=== PATIENT | male | born 1955 | race Caucasian/White ===

== ENCOUNTER 2018-10-28 13:59 | Emergency (ER) | payer MEDICARE, OTHER ==
[2018-10-28] MEDS ORDERED: Lidocaine 1% 30 ML SDV INJECT ONE (14:16)
--- NOTE | 2018-10-28 14:47 | CR ---
[id number] RAD/RAD Fingers Right EXAM: RAD Fingers Right CLINICAL DATA: TRAUMA COMPARISON: NO PREVIOUS SIMILAR EXAM IS AVAILABLE. FINDINGS: Soft tissue injury is seen with tiny radiopaque foreign bodies. There is no underlying bony abnormality.. IMPRESSION: NO BONY ABNORMALITY. Mat Solano MD 10/28/18 1995 Thank you for allowing us to participate in the care of your patient.
--- NOTE | 2018-10-28 14:52 | EDM.PDOC ---
ED HPI GENERAL MEDICAL PROBLEM - General Chief Complaint: Laceration Stated Complaint: cut by saw Time Seen by Provider: 10/28/18 14:04 Source of Information: Reports: Patient History Limitations: Reports: No Limitations - History of Present Illness INITIAL COMMENTS - FREE TEXT/NARRATIVE: Patient cutting on table saw when he cut his right thumb. He has no other complaints. Is able to move thumb in all directions. Up to date on Tetanus vaccination. Onset: Today, Sudden Right Finger-Thumb Pain Score (Numeric/FACES): 4 - Related Data Allergies Allergy/AdvReac Type Severity Reaction Status Date / Time No Known Allergies Allergy Verified 10/28/18 14:20 Social & Family History - Tobacco Use Smoking Status *Q: Never Smoker ED ROS GENERAL - Review of Systems Review Of Systems: See Below Constitutional: Reports: No Symptoms HEENT: Reports: No Symptoms Respiratory: Reports: No Symptoms Cardiovascular: Reports: No Symptoms Endocrine: Reports: No Symptoms GI/Abdominal: Reports: No Symptoms : Reports: No Symptoms Musculoskeletal: Reports: No Symptoms Skin: Reports: Wound (laceration to right distal thumb from saw cut) Neurological: Reports: No Symptoms Psychiatric: Reports: No Symptoms Hematologic/Lymphatic: Reports: No Symptoms Immunologic: Reports: No Symptoms ED EXAM, SKIN/RASH Exam: See Below Exam Limited By: No Limitations Skin: Wound/Incision (3.5 cm linear laceration to distal thumb, palmar ) Location, Skin: Upper Extremity, Right Characteristics: Linear ED SKIN PROCEDURES - Laceration/Wound Repair Right Distal Ventral Digit - 1st (Thumb) Lac/Wound length In cm: 3.5 Appearance: Linear, Clean Distal NVT: No Tendon Injury Anesthetic Type: Other (digital block) Local Anesthesia - Lidocaine (Xylocaine): 1% Plain Local Anesthetic Volume: Other (7) Skin Prep: Chlorhexidine (Hibiciens) Exploration/Debridement/Repair: Wound Explored, In a Bloodless Field, Explored to Base, No Foreign Material Found Closed with: Sutures Suture Size: 3-0 # of Sutures: 7 Suture Type: Running Sterile Dressing Applied: Nurse Tetanus Status Addressed: Yes Complications: No Course - Vital Signs Last Recorded V/S: Last Vital Signs Temp 36.9 C 10/28/18 14:04 Pulse 63 10/28/18 14:04 Resp 16 10/28/18 14:04 BP 134/69 05/21/19 14:04 Pulse Ox 96 10/28/18 14:04 - Orders/Labs/Meds Meds: Medications Discontinued Medications Generic Name Dose Route Start Last Admin Trade Name Ifrah PRN Reason Stop Dose Admin Lidocaine HCl 30 ml 10/28/18 14:16 10/28/18 14:34 Xylocaine-Mpf 1% INJECT 10/28/18 14:17 30 ml ONETIME ONE Administration - Radiology Interpretation Free Text/Narrative:: X-ray of digit does not indicate any involvement between saw and bone Departure - Departure Time of Disposition: 15:14 Disposition: Home, Self-Care 01 Condition: Good Clinical Impression: Laceration of right thumb Qualifiers: Encounter type: initial encounter Damage to nail status: without damage Foreign body presence: without foreign body Qualified Code(s): S61.011A - Laceration without foreign body of right thumb without damage to nail, initial encounter - Discharge Information Instructions: Wound Infection, [id number], Laceration Care, Adult, Easy-to- Read Referrals: Sonny Sifuentes MD [Primary Care Provider] - Forms: ED Department Discharge Additional Instructions: Plan 1. Keep clean and dry. You may shower and wash with soap and water. Leave bandaged for the next 2 days 2. Do not submerge in any liquids until fully closed and healed. 3. Remove stitches in 10-14 days 4. Watch for signs of infection including temperature of 101.5F or higher, chills, the wound is swollen, red, hot to the touch or is oozing pus like drainage. Also watch for a red streak running up the hand/arm. 5. Please call if you have any questions or concerns. - Problem List & Annotations (1) Laceration of right thumb SNOMED Code(s): 79177633709244769 Code(s): S61.011A - LACERATION W/O FB OF RIGHT THUMB W/O DAMAGE TO NAIL, INIT Status: Acute Priority: Low Qualifiers: Encounter type: initial encounter Damage to nail status: without damage Foreign body presence: without foreign body Qualified Code(s): S61.011A - Laceration without foreign body of right thumb without damage to nail, initial encounter - Problem List Review Problem List Initiated/Reviewed/Updated: Yes - Assessment/Plan Assessment:: right thumb laceration from saw Plan: Plan 1. Keep clean and dry. You may shower and wash with soap and water. Leave bandaged for the next 2 days 2. Do not submerge in any liquids until fully closed and healed. 3. Remove stitches in 10-14 days 4. Watch for signs of infection including temperature of 101.5F or higher, chills, the wound is swollen, red, hot to the touch or is oozing pus like drainage. Also watch for a red streak running up the hand/arm. 5. Please call if you have any questions or concerns.
== END 2018-10-28 15:13 | disposition home or self-care (01) ==
LOC: VM.ED 13:59
DX: S61.011A Laceration without foreign body of right thumb without damage to nail, initial encounter (principal); W27.0XXA Contact with workbench tool, initial encounter
CPT/HCPCS: 12002; 73140-F5; 99283-25; J2001